=== PATIENT | male | born 1975 | race American Indian/Alaskan Native ===

== ENCOUNTER 2018-09-02 12:56 | Observation (INO) | payer BC ==
--- NOTE | 2018-09-02 13:18 | Event Note ---
ED Screening Note ED Screening Note: CO CHEST PAIN DM II HTN HPLD OBESE HX SMOKING DAD DEC 50 OF CO This initial assessment/diagnostic orders/clinical plan/treatment(s) is/are subject to change based on patients health status, clinical progression and re- assessment by fellow clinical providers in the ED. Further treatment and workup at subsequent clinical providers discretion. Patient/guardian urged not to elope from the ED as their condition may be serious if not clinically assessed and managed. Initial orders include: RO ACS
[2018-09-02] MEDS ORDERED: ASPIRIN PO ONE (13:19)
--- NOTE | 2018-09-02 14:09 | XRay Report ---
CHEST 2 VIEWS INDICATION: Acute right chest pain. COMPARISON: None FINDINGS: Support devices: None. Heart: Within normal limits. Lungs/pleura: No acute air space or interstitial disease. No pneumothorax. Additional findings: None. IMPRESSION: No acute findings. Signer Name: Joey Scherer Jr, MD Signed: 09/02/2018 2:05 PM Workstation Name: [id number]
[2018-09-02 15:09] LABS: Basophils % (Auto) 0.3 % (0.0-1.8); Eosinophils % (Auto) 0.5 % (0.0-4.3); Hematocrit 46.1 % (35.5-45.6); Hemoglobin 15.5 gm/dl (11.8-15.2); Lymphocytes # (Auto) 2.3 K/mm3 (1.2-5.4); Mean Corpuscular HGB Conc 34 % (32-34); Mean Corpuscular Volume 89 fl (84-94); Monocytes # (Auto) 0.6 K/mm3 (0.0-0.8); Monocytes % (Auto) 7.5 % (0.0-7.3); Platelet Count 191 K/mm3 (140-440); Red Blood Count 5.15 M/mm3 (3.65-5.03); Red Cell Distribution Width 14.3 % (13.2-15.2)
[2018-09-02 15:35] LABS: Alanine Aminotransferase 20 units/L (7-56); Albumin 4.6 g/dL (3.9-5); BUN/Creatinine Ratio 14; Blood Urea Nitrogen 11 mg/dL (9-20); Calcium 9.3 mg/dL (8.4-10.2); Hemolysis Index 12
[2018-09-02] MEDS ORDERED: PEPCID IV ONE (17:28)
--- NOTE | 2018-09-02 17:33 | Emergency Department Report ---
ED Chest Pain HPI - General Chief Complaint: Chest Pain Stated Complaint: CHEST PAIN Time Seen by Provider: 09/02/18 13:16 Source: patient, old records reviewed (no previous medical record for review) Mode of arrival: Ambulatory Limitations: No Limitations - History of Present Illness Initial Comments: 42-year-old male with a past medical history [id number] diabetes and hypertension presents to the hospital with complaints of chest pain since last night. Pain is in the lower mid chest and epigastric area. Described as a intermittent squeezing type of pain. Patient thought initially it was gas. At work today while walking had sudden worsening of the pain described as someone grabbing his chest radiating to the left side and left arm. The pain brought him to his knees with associated shortness of breath. He denies significant di aphoresis, nausea, vomiting, recent travel, calf tenderness, or leg edema. Patient is a former smoker. He is unsure about his father's history but he young. He has never had a stress test or cardiac workup in the past. Since he's been in the ED his significant other gave him a soda which is caused him to belch and he has some relief in his pain. He does have a PMD affiliated - Related Data Home Medications Medication Instructions Recorded Confirmed Last Taken AtorvaSTATin [Lipitor] 40 mg PO QHS 09/02/18 09/02/18 Unknown Janumet XR 100-1,000 mg 100 - 1,000 mg PO DAILY 09/02/18 09/02/18 Unknown Lisinopril [Zestril TAB] 40 mg PO DAILY 09/02/18 09/02/18 Unknown [place]-3S/Dha/Epa/Fish Oil [[place]-3 1 each PO BID 09/02/18 09/02/18 Unknown Fish Oil 1,000 mg Sfgl] amLODIPine [Norvasc] 10 mg PO DAILY 09/02/18 09/02/18 Unknown Allergies Allergy/AdvReac Type Severity Reaction Status Date / Time Penicillins Allergy Swelling Verified 09/02/18 12:58 Heart Score - HEART Score History: Moderately suspicious EKG: Non-specific Age: < 45 Risk factors: > 3 risk factors or hx of atherosclerotic disease Troponin: < normal limit HEART Score: 4 ED Review of Systems ROS: Stated complaint: CHEST PAIN Other details as noted in HPI Comment: All other systems reviewed and negative ED Past Medical Hx - Past Medical History Hx Hypertension: Yes Hx Diabetes: Yes - Surgical History Additional Surgical History: KNEE AND ANKLE SURGERY - Social History Smoking Status: Former Smoker Substance Use Type: None - Medications Home Medications: Home Medications Medication Instructions Recorded Confirmed Last Taken Type AtorvaSTATin [Lipitor] 40 mg PO QHS 09/02/18 09/02/18 Unknown History Janumet XR 100-1,000 mg 100 - 1,000 mg PO DAILY 09/02/18 09/02/18 Unknown History Lisinopril [Zestril TAB] 40 mg PO DAILY 09/02/18 09/02/18 Unknown History [place]-3S/Dha/Epa/Fish Oil [[place]-3 1 each PO BID 09/02/18 09/02/18 Unknown History Fish Oil 1,000 mg Sfgl] amLODIPine [Norvasc] 10 mg PO DAILY 09/02/18 09/02/18 Unknown History ED Physical Exam - General Limitations: No Limitations - Other Other exam information: General: No limitations, patient is alert in no acute distress Head exam: Atraumatic, normocephalic Eyes exam: Normal appearance, pupils equal reactive to light, extraocular movements intact ENT: Moist mucous membrane, normal oropharynx Neck exam: Normal inspection, full range of motion, no meningismus nontender Respiratory exam: Clear to auscultation bilateral, no wheezes, rales, crackles Cardiovascular: Normal rate and rhythm, normal heart sounds, tenderness to lower sternum and right sided chest wall Abdomen: Soft, nondistended, and mild epigastric tenderness, with normal bowel sounds, no rebound, or guarding Extremity: Full range of motion normal inspection no deformity, no calf tenderness or edema Back: Normal Inspection, full range of motion, no tenderness Neurologic: Alert, oriented x3, cranial nerves intact, no motor or sensory deficit Psychiatric: normal affect, normal mood Skin: Warm, dry, intact ED Course Vital Signs 09/02/18 09/02/18 13:16 18:30 Temperature 98.1 F 97.8 F Pulse Rate 66 57 L Respiratory 18 18 Rate Blood Pressure 147/83 143/93 O2 Sat by Pulse 98 100 Oximetry GABRIELA score - Gabriela Score Age > 65: (0) No Aspirin use within the Past 7 Days: (0) No 3 or more CAD Risk Factors: (1) Yes 2 or more Angina events in past 24 hrs: (1) Yes Known CAD with more than 50% Stenosis: (0) No Elevated Cardiac Markers: (0) No ST Deviation Greater than 0.5mm: (0) No GABRIELA Score: 2 ED Medical Decision Making - Lab Data Result diagrams: 09/02/18 14:49 09/02/18 14:49 Lab Results 09/02/18 09/02/18 Range/Units 14:49 14:49 WBC 8.4 (4.5-11.0) K/mm3 RBC 5.15 H (3.65-5.03) M/mm3 Hgb 15.5 H (11.8-15.2) gm/dl Hct 46.1 H (35.5-45.6) % MCV 89 (84-94) fl MCH 30 (28-32) pg MCHC 34 (32-34) % RDW 14.3 (13.2-15.2) % Plt Count 191 (140-440) K/mm3 Lymph % (Auto) 27.0 (13.4-35.0) % [place] % (Auto) 7.5 H (0.0-7.3) % Eos % (Auto) 0.5 (0.0-4.3) % Baso % (Auto) 0.3 (0.0-1.8) % Lymph # 2.3 (1.2-5.4) K/mm3 [place] # 0.6 (0.0-0.8) K/mm3 Eos # 0.0 (0.0-0.4) K/mm3 Baso # 0.0 (0.0-0.1) K/mm3 Seg Neutrophils % 64.7 (40.0-70.0) % Seg Neutrophils # 5.4 (1.8-7.7) K/mm3 Sodium 142 (137-145) mmol/L Potassium 4.1 (3.6-5.0) mmol/L Chloride 104.6 (98-107) mmol/L Carbon Dioxide 24 (22-30) mmol/L Anion Gap 18 mmol/L BUN 11 (9-20) mg/dL Creatinine 0.8 (0.8-1.5) mg/dL Estimated GFR > 60 ml/min BUN/Creatinine Ratio 14 % Glucose 139 H (75-100) mg/dL Calcium 9.3 (8.4-10.2) mg/dL Total Bilirubin 0.60 (0.1-1.2) mg/dL AST 17 (5-40) units/L ALT 20 (7-56) units/L Alkaline Phosphatase 74 (35-129) units/L Troponin T < 0.010 (0.00-0.029) ng/mL Total Protein 7.4 (6.3-8.2) g/dL Albumin 4.6 (3.9-5) g/dL Albumin/Globulin Ratio 1.6 % - EKG Data -: EKG Interpreted by Me EKG shows normal: sinus rhythm, axis (qrs 56), QRS complexes (qrsd 100), ST-T waves (no stemi) Rate: normal - EKG Data When compared to previous EKG there are: previous EKG unavailable - Radiology Data Radiology results: report reviewed CHEST 2 VIEWS INDICATION: Acute right chest pain. COMPARISON: None FINDINGS: Support devices: None. Heart: Within normal limits. Lungs/pleura: No acute air space or interstitial disease. No pneumothorax. Additional findings: None. IMPRESSION: No acute findings. - Medical Decision Making Patient has several risk factors and a heart score of 4 and will be admitted for further cardiac testing. He received aspirin and Pepcid in the ED. Ho spitalist informed for admission. low score for dvt/pe (wellen's score) - Differential Diagnosis GA, unstable angina, costochondritis, GERD, PE Critical Care Time: No Critical care attestation.: If time is entered above; I have spent that time in minutes in the direct care of this critically ill patient, excluding procedure time. ED Disposition Clinical Impression: Chest pain, Obesity (BMI 30.0-34.9), Non-insulin dependent type 2 diabetes mellitus, Chronic hypertension, Former smoker Disposition: OP ADMIT IP TO THIS HOSP Is pt being admited?: Yes Does the pt Need Aspirin: Yes Condition: Stable Time of Disposition: 17:34 (Dr Brice/hosp)
[2018-09-02] MEDS ORDERED: ASPIRIN ONE (18:40)
[2018-09-02 18:56] LABS: Bilirubin,Urine NEG (Negative); Blood,Urine SM (Negative); Color,Urine Straw (Yellow); Mucus,Urine FEW /HPF; Protein,Urine <15 mg/dL mg/dL (Negative); Urobilinogen,Urine < 2.0 mg/dL (<2.0); WBC,Urine < 1.0 /HPF (0.0-6.0)
--- NOTE | 2018-09-02 22:58 | Event Note ---
Date: 09/02/18 See dictated history and physical in the reports Chest pain rule out NM Hypertension Type 2 diabetes
[2018-09-02] MEDS ORDERED: DILAUDID IV PRN (23:00)
[2018-09-02] MEDS ORDERED: TYLENOL PO PRN (23:00)
[2018-09-02] MEDS ORDERED: SODIUM CHLORIDE FLUSH SYRINGE 10 ML IV PRN (23:00)
[2018-09-02] MEDS ORDERED: IBUPROFEN PO PRN (23:00)
[2018-09-02] MEDS ORDERED: ZOFRAN IV PRN (23:00)
--- NOTE | 2018-09-02 23:24 | History and Physical Report ---
CHIEF COMPLAINT: Left-sided chest pain since last night. HISTORY OF PRESENT ILLNESS: A 42-year-old -Serbian male with past medical history of hypertension and non-insulin dependent diabetes, comes in for left-sided chest pain since last night. Pain is in the retrosternal and epigastric area. Intermittent and squeezing type of pain. Pain is about 8 on a scale of 1-10. No diaphoresis, no palpitations, radiating to the left. Also shortness of breath present. No recent travel. Strong family history of coronary artery disease. Never had a stress test in the past. No exacerbating or relieving factors. PAST MEDICAL HISTORY: Significant for hypertension and diabetes. PAST SURGICAL HISTORY: Knee and ankle surgery. SOCIAL HISTORY: Former smoker. FAMILY HISTORY: Hypertension and coronary artery disease. CURRENT MEDICATIONS: Atorvastatin 40 mg daily, amlodipine 10 mg daily, Janumet 100/1000 once a day, lisinopril 40 mg once a day. REVIEW OF SYSTEMS: Significant for left-sided chest pain and shortness of breath. Otherwise, review of systems negative. A 14-point review of systems done. PHYSICAL EXAMINATION: GENERAL: Middle-aged male, cooperative during examination. VITAL SIGNS: Blood pressure 147/83, temperature is 98.1, pulse is 66, respirations are 18. HEENT: Unremarkable. Pupils are equal and reactive. NECK: Supple, no lymphadenopathy, no thyromegaly. LUNGS: Clear to auscultation and percussion. Good air entry. CARDIOVASCULAR: S1, S2 heard. No gallop, no murmur, no rub. Apical impulse in left fifth intercostal space and midclavicular line. ABDOMEN: Soft and benign. No hepatosplenomegaly. No guarding, no rigidity. Hernial orifices are normal. EXTREMITIES: Good pedal pulses. No pedal edema. CENTRAL NERVOUS SYSTEM: Alert and oriented x 4, nonfocal exam. SKIN: Normal. LABORATORY DATA: White count is 8400, H and H is 15.5 and 46.1, platelet count is 191,000. Electrolytes are normal. Glucose is 139. Urine is normal. EKG shows normal sinus rhythm, LVH criteria for V1, V2, V3 and deep S waves and tall R waves in V4, V5, V6. Chest x-ray, no acute abnormalities. ASSESSMENT AND PLAN: 1. Chest pain, rule out myocardial infarction, chest pain protocol. Serial troponins. Lexiscan in the morning. 2. Hypertension. Continue amlodipine and lisinopril. 3. Hyperlipidemia. Continue atorvastatin. 4. Type 2 diabetes. Continue Janumet XR 100/1000 daily and also check hemoglobin A1c and Accu-Cheks a.c. and at bedtime with Humalog coverage with moderate dose sliding scale protocol. 5. Deep venous thrombosis prophylaxis, Lovenox 40 mg subcutaneous daily. JOB# [id number] VSM/NTS
[2018-09-02] MEDS: FISH OIL PO SCH (23:28)
[2018-09-03 07:20] LABS: Basophils % (Auto) 0.1 % (0.0-1.8); Eosinophils # (Auto) 0.1 K/mm3 (0.0-0.4); Eosinophils % (Auto) 0.7 % (0.0-4.3); Hemoglobin 14.8 gm/dl (11.8-15.2); Lymphocytes # (Auto) 2.2 K/mm3 (1.2-5.4); Lymphocytes % (Auto) 28.4 % (13.4-35.0); Mean Corpuscular HGB Conc 35 % (32-34); Mean Corpuscular Volume 88 fl (84-94); Monocytes # (Auto) 0.7 K/mm3 (0.0-0.8); Monocytes % (Auto) 9.5 % (0.0-7.3); Platelet Count 189 K/mm3 (140-440); Red Blood Count 4.87 M/mm3 (3.65-5.03); Red Cell Distribution Width 13.5 % (13.2-15.2)
[2018-09-03 07:24] LABS: Alanine Aminotransferase 18 units/L (7-56); Albumin 4.1 g/dL (3.9-5); BUN/Creatinine Ratio 13; Blood Urea Nitrogen 10 mg/dL (9-20); Calcium 8.9 mg/dL (8.4-10.2); Hemolysis Index 14
[2018-09-03] MEDS ORDERED: LEXISCAN IV ONE (07:45)
[2018-09-03] MEDS ORDERED: NORVASC PO SCH (10:00)
[2018-09-03] MEDS ORDERED: ZESTRIL PO SCH (10:00)
[2018-09-03] MEDS ORDERED: TRADJENTA PO SCH (10:00)
[2018-09-03] MEDS: HumaLOG SUB-Q SCH ×4 (13:22→22:48)
[2018-09-03] MEDS: GLUCOPHAGE PO SCH ×2 (14:10→18:17)
[2018-09-03] MEDS: PEPCID PO SCH ×2 (14:10→21:30)
[2018-09-03] MEDS: SODIUM CHLORIDE FLUSH SYRINGE 10 ML IV SCH ×2 (14:12→21:29)
[2018-09-03] MEDS: FISH OIL PO SCH (14:15)
--- NOTE | 2018-09-03 15:01 | Progress Note ---
Assessment and Plan Assessment and plan: Chest pain Stress test abnormal cardiology consulted, evaluated him For cardiac cath tomorrow Hypertension Monitor BP Diabetes mellitus type 2 Accucheck qac and hs Obesity. I counseled him and discussed diet and exercise to lose weight full code status History Interval history: Chest pain Hospitalist Physical - Physical exam Narrative exam: Gen: Not in acute distress, lying in bed,Obese HEENT: Normocephalic, atraumatic Neck: supple, no JVD Heart: S1 and S2 reg, no murmurs, rubs or gallop Lungs: Clear, no crackles or wheeze Abd: soft, non tender, non distended, normal BS Ext: No edema, no clubbing, no cyanosis Neuro:awake,alert, Oriented X 3. No focal signs Psych: Normal mood - Constitutional Vitals: Temp Pulse Resp BP Pulse Ox 98.1 F 56 L 18 137/86 100 09/03/18 07:37 09/03/18 06:00 09/03/18 07:37 09/03/18 09:12 09/03/18 04:00 Results - Labs CBC & Chem 7: 09/03/18 05:54 09/03/18 05:54 Labs: Laboratory Last Values WBC 7.7 K/mm3 (4.5-11.0) 09/03/18 05:54 RBC 4.87 M/mm3 (3.65-5.03) 09/03/18 05:54 Hgb 14.8 gm/dl (11.8-15.2) 09/03/18 05:54 Hct 43.0 % (35.5-45.6) 09/03/18 05:54 MCV 88 fl (84-94) 09/03/18 05:54 MCH 31 pg (28-32) 09/03/18 05:54 MCHC 35 % (32-34) H 09/03/18 05:54 RDW 13.5 % (13.2-15.2) 09/03/18 05:54 Plt Count 189 K/mm3 (140-440) 09/03/18 05:54 Lymph % (Auto) 28.4 % (13.4-35.0) 09/03/18 05:54 [place] % (Auto) 9.5 % (0.0-7.3) H 09/03/18 05:54 Eos % (Auto) 0.7 % (0.0-4.3) 09/03/18 05:54 Baso % (Auto) 0.1 % (0.0-1.8) 09/03/18 05:54 Lymph # 2.2 K/mm3 (1.2-5.4) 09/03/18 05:54 [place] # 0.7 K/mm3 (0.0-0.8) 09/03/18 05:54 Eos # 0.1 K/mm3 (0.0-0.4) 09/03/18 05:54 Baso # 0.0 K/mm3 (0.0-0.1) 09/03/18 05:54 Seg Neutrophils % 61.3 % (40.0-70.0) 09/03/18 05:54 Seg Neutrophils # 4.7 K/mm3 (1.8-7.7) 09/03/18 05:54 Sodium 142 mmol/L (137-145) 09/03/18 05:54 Potassium 3.9 mmol/L (3.6-5.0) 09/03/18 05:54 Chloride 105.6 mmol/L (98-107) 09/03/18 05:54 Carbon Dioxide 23 mmol/L (22-30) 09/03/18 05:54 17 mmol/L 09/03/18 05:54 BUN 10 mg/dL (9-20) 09/03/18 05:54 0.8 mg/dL (0.8-1.5) 09/03/18 05:54 Estimated GFR > 60 ml/min 09/03/18 05:54 13 % 09/03/18 05:54 Glucose 132 mg/dL (75-100) H 09/03/18 05:54 POC Glucose 152 (70-105) H 09/03/18 11:42 7.2 % (4-6) H 09/02/18 14:49 Calcium 8.9 mg/dL (8.4-10.2) 09/03/18 05:54 0.50 mg/dL (0.1-1.2) 09/03/18 05:54 AST 15 units/L (5-40) 09/03/18 05:54 ALT 18 units/L (7-56) 09/03/18 05:54 72 units/L (35-129) 09/03/18 05:54 < 0.010 ng/mL (0.00-0.029) 09/03/18 05:54 6.1 g/dL (6.3-8.2) L 09/03/18 05:54 4.1 g/dL (3.9-5) 09/03/18 05:54 2.1 % 09/03/18 05:54 Straw (Yellow) 09/02/18 18:35 Clear (Clear) 09/02/18 18:35 7.0 (5.0-7.0) 09/02/18 18:35 Ur Specific [place] 1.012 (1.003-1.030) 09/02/18 18:35 <15 mg/dl mg/dL (Negative) 09/02/18 18:35 Neg mg/dL (Negative) 09/02/18 18:35 Neg mg/dL (Negative) 09/02/18 18:35 Sm (Negative) 09/02/18 18:35 Neg (Negative) 09/02/18 18:35 Neg (Negative) 09/02/18 18:35 < 2.0 mg/dL (<2.0) 09/02/18 18:35 Ur Leukocyte Esterase Neg (Negative) 09/02/18 18:35 < 1.0 /HPF (0.0-6.0) 09/02/18 18:35 1.0 /HPF (0.0-6.0) 09/02/18 18:35 U Epithel Cells (Auto) < 1.0 /HPF (0-13.0) 09/02/18 18:35 Few /HPF 09/02/18 18:35 Active Medications - Current Medications Current Medications: Generic Name Dose Route Start Last Admin Trade Name Freq PRN Reason Stop Dose Admin Acetaminophen 650 mg 09/02/18 23:00 Tylenol PO Q4H PRN Pain MILD(1-3)/Fever >100.5/REARDON Amlodipine Besylate 10 mg 09/03/18 10:00 09/03/18 14:10 Norvasc PO 10 mg DAILY KJ Administration Atorvastatin Calcium 40 mg 09/03/18 22:00 Lipitor PO QHS KJ Enoxaparin Sodium 40 mg 09/03/18 22:00 Lovenox SUB-Q QDAY@2200 KJ Famotidine 20 mg 09/03/18 10:00 09/03/18 14:10 Pepcid PO 20 mg BID KJ Administration Fish Oil 1,000 mg 09/03/18 22:00 Fish Oil PO BID [facility] Hydromorphone HCl 0.5 mg 09/02/18 23:00 Dilaudid IV Q3H PRN Pain , Severe (7-10) Ibuprofen 600 mg 09/02/18 23:00 Ibuprofen PO Q6H PRN Pain, Mild (1-3) Insulin Human Lispro 0 unit 09/03/18 07:30 09/03/18 13:23 Humalog SUB-Q Not Given ACHS [facility] Protocol Linagliptin 5 mg 09/03/18 10:00 09/03/18 14:11 Tradjenta PO 5 mg QDAY KJ Administration Lisinopril 40 mg 09/03/18 10:00 09/03/18 14:12 Zestril PO 40 mg DAILY KJ Administration Metformin HCl 500 mg 09/03/18 08:00 09/03/18 14:10 Glucophage PO 500 mg BIDDIAB KJ Administration Ondansetron HCl 4 mg 09/02/18 23:00 Zofran IV Q8H PRN Nausea And Vomiting Sodium Chloride 10 ml 09/03/18 10:00 09/03/18 14:12 Sodium Chloride Flush Syringe 10 Ml IV 10 ml BID KJ Administration Sodium Chloride 10 ml 09/02/18 23:00 Sodium Chloride Flush Syringe 10 Ml IV PRN PRN LINE FLUSH
--- NOTE | 2018-09-03 15:07 | Consultation ---
History of Present Illness Consult date: 09/03/18 Requesting physician: FRANCIE KAUR Consult reason: chest pain History of present illness: The pt is a 42-year-old male with a past medical history of HTN (controlled with lisinopril), HLP, DM, sleep apnea, former tobacco use (quit smoking 1 year ago). He is previously unknown to our practice. He presented with c/o chest pain. He states that he was at work yesterday evening when he developed sudden onset nonradiating, nonexertional, midsternal squeezing pain. The pain was so intense that it brought him to his knees. The pain has been intermittently present since that point. There are no clear aggravating or alleviating factors. Pt also reports some indigestion for the past 2 days. He denies any SOB, palpitations, n/v, diaphoresis, dizziness or syncope. Pt denies any known prior cardiac issues or cardiac w/u. Pt underwent lexiscan MPI stress test this morning which showed medium reversible inferior defect and thus cardiology has been consulted. Past History Past Medical History: diabetes, hypertension, hyperlipidemia Past Surgical History: Other (right ankle surgery) Social history: smoking (former) Medications and Allergies Allergies Allergy/AdvReac Type Severity Reaction Status Date / Time Penicillins Allergy Swelling Verified 09/02/18 12:58 Home Medications Medication Instructions Recorded Confirmed Last Taken Type AtorvaSTATin [Lipitor] 40 mg PO QHS 09/02/18 09/02/18 Unknown History Janumet XR 100-1,000 mg 100 - 1,000 mg PO DAILY 09/02/18 09/02/18 Unknown History Lisinopril [Zestril TAB] 40 mg PO DAILY 09/02/18 09/02/18 Unknown History [place]-3S/Dha/Epa/Fish Oil [[place]-3 1 each PO BID 09/02/18 09/02/18 Unknown History Fish Oil 1,000 mg Sfgl] amLODIPine [Norvasc] 10 mg PO DAILY 09/02/18 09/02/18 Unknown History Active Meds: Active Medications Acetaminophen (Tylenol) 650 mg PO Q4H PRN PRN Reason: Pain MILD(1-3)/Fever >100.5/REARDON Amlodipine Besylate (Norvasc) 10 mg PO DAILY KJ Last Admin: 09/03/18 14:10 Dose: 10 mg Documented by: Atorvastatin Calcium (Lipitor) 40 mg PO QHS [facility]END[facility] TO [facility] Enoxaparin Sodium (Lovenox) 40 mg SUB-Q QDAY@2200 [facility] Famotidine (Pepcid) 20 mg PO BID [facility] Last Admin: 09/03/18 14:10 Dose: 20 mg Documented by: Fish Oil (Fish Oil) 1,000 mg PO BID [facility] Hydromorphone HCl (Dilaudid) 0.5 mg IV Q3H PRN PRN Reason: Pain , Severe (7-10) Ibuprofen (Ibuprofen) 600 mg PO Q6H PRN PRN Reason: Pain, Mild (1-3) Insulin Human Lispro (Humalog) 0 unit SUB-Q ACHS [facility]END[facility]; Protocol Last Admin: 09/03/18 13:23 Dose: Not Given Documented by: Linagliptin (Tradjenta) 5 mg PO QDAY [facility] Last Admin: 09/03/18 14:11 Dose: 5 mg Documented by: Lisinopril (Zestril) 40 mg PO DAILY [facility] Last Admin: 09/03/18 14:12 Dose: 40 mg Documented by: Metformin HCl (Glucophage) 500 mg PO BIDDIAB [facility] Last Admin: 09/03/18 14:10 Dose: 500 mg Documented by: Ondansetron HCl (Zofran) 4 mg IV Q8H PRN PRN Reason: Nausea And Vomiting Sodium Chloride (Sodium Chloride Flush Syringe 10 Ml) 10 ml IV BID [facility] Last Admin: 09/03/18 14:12 Dose: 10 ml Documented by: Sodium Chloride (Sodium Chloride Flush Syringe 10 Ml) 10 ml IV PRN PRN PRN Reason: LINE FLUSH Review of Systems Constitutional: no weight loss, no weight gain, no fever, no chills, no sweats Ears, nose, mouth and throat: no ear pain, no nose pain, no sinus pressure, no sinus pain Cardiovascular: chest pain, no orthopnea, no palpitations, no rapid/irregular heart beat, no edema, no syncope, no lightheadedness, no shortness of breath, no dyspnea on exertion Respiratory: no cough, no shortness of breath, no dyspnea on exertion, no congestion, no wheezing, no pain on inspiration Gastrointestinal: no abdominal pain, no nausea, no vomiting, no diarrhea, no constipation, no change in bowel habits Genitourinary Male: no dysuria, no hematuria, no flank pain, no discharge, no urinary frequency, no urinary hesitancy Musculoskeletal: no neck stiffness, no neck pain, no shooting arm pain, no arm n umbness/tingling, no low back pain, no shooting leg pain Integumentary: no rash, no pruritis, no redness, no sores, no wounds Neurological: no head injury, no paralysis, no weakness, no parathesias, no numbness, no tingling, no seizures, no syncope Psychiatric: no anxiety Endocrine: no cold intolerance, no heat intolerance Hematologic/Lymphatic: no easy bruising, no easy bleeding Allergic/Immunologic: no urticaria, no wheezing Physical Examination Vital Signs Temp Pulse Resp BP Pulse Ox 98.1 F 66 18 147/83 98 09/02/18 13:16 09/02/18 13:16 09/02/18 13:16 09/02/18 13:16 09/02/18 13:16 General appearance: no acute distress HEENT: Positive: PERRL, Normocephaly, Mucus Membranes Moist Neck: Positive: neck supple, trachea midline Cardiac: Positive: Reg Rate and Rhythm, S1/S2 Lungs: Positive: Decreased Breath Sounds Neuro: Positive: Grossly Intact Abdomen: Negative: Tender Skin: Negative: Rash Musculoskeletal: No Pain Extremities: Absent: edema Results 09/03/18 05:54 09/03/18 05:54 Cardiac Enzymes 09/02/18 09/03/18 Range/Units 14:49 05:54 AST 17 15 (5-40) units/L CBC 09/02/18 09/03/18 Range/Units 14:49 05:54 WBC 8.4 7.7 (4.5-11.0) K/mm3 RBC 5.15 H 4.87 (3.65-5.03) M/mm3 Hgb 15.5 H 14.8 (11.8-15.2) gm/dl Hct 46.1 H 43.0 (35.5-45.6) % Plt Count 191 189 (140-440) K/mm3 Lymph # 2.3 2.2 (1.2-5.4) K/mm3 [place] # 0.6 0.7 (0.0-0.8) K/mm3 Eos # 0.0 0.1 (0.0-0.4) K/mm3 Baso # 0.0 0.0 (0.0-0.1) K/mm3 Comprehensive Metabolic Panel 09/02/18 09/03/18 Range/Units 14:49 05:54 Sodium 142 142 (137-145) mmol/L Potassium 4.1 3.9 (3.6-5.0) mmol/L Chloride 104.6 105.6 (98-107) mmol/L Carbon Dioxide 24 23 (22-30) mmol/L BUN 11 10 (9-20) mg/dL Creatinine 0.8 0.8 (0.8-1.5) mg/dL Glucose 139 H 132 H (75-100) mg/dL Calcium 9.3 8.9 (8.4-10.2) mg/dL AST 17 15 (5-40) units/L ALT 20 18 (7-56) units/L Alkaline Phosphatase 74 72 (35-129) units/L Total Protein 7.4 6.1 L (6.3-8.2) g/dL Albumin 4.6 4.1 (3.9-5) g/dL - Imaging and Cardiology Echo: pending EKG: report reviewed, image reviewed EKG interpretations - Telemetry EKG Rhythm: Sinus Rhythm - EKG Sinus rhythms and dysrhythmias: sinus rhythm Chamber hypertrophy or enlargement: left ventricular hypertro Assessment and Plan Pt presented with c/o chest pain. He underwent lexiscan MPI stress test this morning which showed medium reversible inferior defect and thus cardiology has been consulted. Coronary angiography recommended for definitive diagnosis. Indications, potential risks and benefits of LHC reviewed with pt and he is agreeable to proceed with LHC in AM. PT REFUSES BLOOD PRODUCTS. NPO after MN. Await echo. The patient has been seen in conjunction with Dr. Dias who agrees with the assessment and plan of care. - Patient Problems (1) Abnormal stress test Current Visit: Yes Status: Acute (2) Chest pain Current Visit: Yes Status: Acute (3) HTN (hypertension) Current Visit: Yes Status: Chronic (4) Hyperlipidemia Current Visit: Yes Status: Chronic (5) Diabetes Current Visit: Yes Status: Chronic (6) Sleep apnea Current Visit: Yes Status: Chronic (7) Former smoker Current Visit: Yes Status: Chronic
[2018-09-03] MEDS ORDERED: NACL 0.9% 500 ML 500 ML IV SCH (16:00)
[2018-09-03] MEDS ORDERED: LOVENOX SUB-Q SCH (22:00)
[2018-09-03] MEDS ORDERED: LOPRESSOR PO SCH (22:00)
[2018-09-03] MEDS ORDERED: FISH OIL PO SCH (22:00)
--- NOTE | 2018-09-03 22:06 | Treadmill Report ---
LEXISCAN STRESS TEST REPORT REASON FOR STUDY: Chest pain. STRESS TEST PROTOCOL: The patient received 0.4 mg of Lexiscan intravenously over 10 seconds. Tc-99m Tetrofosmin was subsequently injected. Baseline ECG, sinus bradycardia. Lexiscan ECG, no ischemic changes. No chest pain. No arrhythmias. IMPRESSION: Electrocardiographically negative stress test. Nuclear imaging report to follow. JOB# [id number] ROLAN/NTS
[2018-09-04 06:02] LABS: Basophils % (Auto) 0.2 % (0.0-1.8); Eosinophils # (Auto) 0.1 K/mm3 (0.0-0.4); Eosinophils % (Auto) 0.7 % (0.0-4.3); Hemoglobin 15.3 gm/dl (11.8-15.2); Lymphocytes % (Auto) 26.6 % (13.4-35.0); Mean Corpuscular HGB Conc 34 % (32-34); Mean Corpuscular Volume 89 fl (84-94); Monocytes # (Auto) 0.7 K/mm3 (0.0-0.8); Monocytes % (Auto) 9.8 % (0.0-7.3); Platelet Count 195 K/mm3 (140-440); Red Blood Count 5.08 M/mm3 (3.65-5.03); Red Cell Distribution Width 13.7 % (13.2-15.2)
[2018-09-04 06:11] LABS: INR 0.9 (0.87-1.13)
[2018-09-04 06:21] LABS: BUN/Creatinine Ratio 11; Blood Urea Nitrogen 9 mg/dL (9-20); Calcium 8.5 mg/dL (8.4-10.2); Hemolysis Index 6
[2018-09-04] MEDS: HumaLOG SUB-Q SCH ×2 (08:00→14:51)
[2018-09-04] MEDS ORDERED: ASPIRIN ONE (08:08)
[2018-09-04] MEDS ORDERED: NACL 0.9% 500 ML 500 ML ONE (08:23)
[2018-09-04] MEDS ORDERED: HEPARIN/NS 5000 UNIT/500ML(CATH LAB) 1,000 ML IR ONE (08:37)
[2018-09-04] MEDS ORDERED: NITROGLYCERIN SYRINGE 3 ML ONE (08:38)
[2018-09-04] MEDS ORDERED: HEPARIN 10,000 UNITS/10 ML ONE (08:38)
[2018-09-04] MEDS ORDERED: CALAN ONE (08:38)
[2018-09-04] MEDS ORDERED: NACL 0.9% 500 ML 500 ML IV SCH (09:00)
[2018-09-04] MEDS ORDERED: SUBLIMAZE ONE (09:17)
[2018-09-04] MEDS ORDERED: VERSED ONE (09:17)
[2018-09-04] MEDS: XYLOCAINE 2% INFILTRATI ONE ×2 (09:27→09:53)
[2018-09-04] MEDS ORDERED: ASPIRIN PO SCH (10:00)
--- NOTE | 2018-09-04 10:12 | Progress Note ---
Assessment and Plan cp with positive stress test chol htn dm rec: cardiac cath normal coronaries and normal lv function, treat for non cardiac chest pain and follow up with pcp dr jorge kelly and hold metoformin for two days and may be discharged after post cath care. Subjective Date of service: 09/04/18 Principal diagnosis: chest pain Interval history: currently chest pain free Objective Vital Signs Temp Pulse Resp BP BP Pulse Ox 09/04/18 08:12 99.3 F 57 L 9 L 137/84 97 09/04/18 07:11 98.0 F 60 18 136/90 85 09/04/18 03:52 98.0 F 54 L 18 112/69 97 09/04/18 03:50 58 L 09/04/18 01:28 56 L 14 98 09/03/18 23:02 98.0 F 62 18 127/83 98 09/03/18 21:30 161/97 09/03/18 20:41 61 09/03/18 19:28 98.0 F 63 20 161/97 99 09/03/18 18:12 50 L 167/93 80 L 09/03/18 16:44 97.4 F L 18 152/103 87 09/03/18 11:37 98.5 F 65 18 151/93 - Physical Examination General: Appears Well HEENT: Positive: PERRL, Normocephaly, Mucus Membranes Moist Neck: Positive: neck supple, trachea midline Cardiac: Positive: Reg Rate and Rhythm Lungs: Positive: clear to auscultation Neuro: Positive: Grossly Intact Abdomen: Negative: Tender Skin: Negative: Rash Musculoskeletal: No Pain Extremities: Absent: edema - Labs and Meds Coagulation 09/04/18 Range/Units 05:35 PT 11.9 L (12.2-14.9) Sec. INR 0.90 (0.87-1.13) CBC 09/04/18 Range/Units 05:35 WBC 7.5 (4.5-11.0) K/mm3 RBC 5.08 H (3.65-5.03) M/mm3 Hgb 15.3 H (11.8-15.2) gm/dl Hct 45.0 (35.5-45.6) % Plt Count 195 (140-440) K/mm3 Lymph # 2.0 (1.2-5.4) K/mm3 Atkinson # 0.7 (0.0-0.8) K/mm3 Eos # 0.1 (0.0-0.4) K/mm3 Baso # 0.0 (0.0-0.1) K/mm3 Comprehensive Metabolic Panel 09/04/18 Range/Units 05:35 Sodium 141 (137-145) mmol/L Potassium 3.6 (3.6-5.0) mmol/L Chloride 104.8 (98-107) mmol/L Carbon Dioxide 26 (22-30) mmol/L BUN 9 (9-20) mg/dL Creatinine 0.8 (0.8-1.5) mg/dL Glucose 116 H (75-100) mg/dL Calcium 8.5 (8.4-10.2) mg/dL - Imaging and Cardiology EKG: report reviewed, image reviewed Cardiac cath: report reviewed (normal coroanries and normal lv function ) - Telemetry EKG Rhythm: Sinus Rhythm - EKG Sinus rhythms and dysrhythmias: sinus rhythm Chamber hypertrophy or enlargement: left ventricular hypertro
--- NOTE | 2018-09-04 10:59 | Cardiac Catherization Report ---
LEFT HEART CATHETERIZATION CLINICAL INFORMATION: This is a 42-year-old -[place] gentleman who has hypertension, diabetes, cholesterol, presents with chest pain, is here for abnormal stress test suggestive of ischemia, is here for left heart catheterization for suspected coronary artery disease given risk factors of chest pain. DESCRIPTION OF PROCEDURE: Procedure was done with moderate sedation, 1 mg Versed, 50 mcg of fentanyl; started at 9:26 a.m., finished at 9:57 a.m.; 31 minutes of supervised sedation noted. Procedure was initially done via the right radial artery, 6-[place] radial sheath, unable to engage the left system, so it was changed over to a femoral 5-[place] groin sheath placed in the right common femoral artery, sterile technique, local anesthesia, 5-[place] groin sheath placed. So, RCA was engaged with JR4 from the right radial. It is a large dominant vessel, is patent with moderate tortuosity. LV gram done in the CONSUELO and WORLEY view shows normal LV function, EF 55-60%. LVEDP is 17 mmHg, LV is 124. Aortic is 127/78. No gradient across the aortic valve on pullback. Unable to get into the left system from the right radial approach secondary to tortuosity of the innominate and high takeoff, used multiple catheters without success, so we changed to a femoral approach. So, left system engaged with JL4 catheter from the groin, showed left main large, patent and long, bifurcates into a large LAD that is patent. Diagonal 1 is medium caliber, is patent. Ramus is a large caliber vessel, is patent. Circumflex is a large caliber vessel, is patent, goes into a large OM1 that is patent. So, 5-[place] catheters were taken over the guidewire, 5-[place] groin sheath was discontinued. Manual pressure held. Right radial sheath was discontinued. Radial band applied. No hematoma, no bleeding. SUMMARY: Normal coronaries, left main patent, LAD patent, ramus patent, circ patent, RCA patent, normal LV function. Continue risk factor modification for hypertension, diabetes, cholesterol, noncardiac chest pain. [facility]# [id number] ERROL/BRODIE
--- NOTE | 2018-09-04 12:10 | Discharge Summary ---
Providers - Providers Date of Admission: 09/02/18 17:35 Date of discharge: 09/04/18 Attending physician: FRANCIE KAUR 09/03/18 15:00 Consult to Physician [CONS] Routine Comment: Consulting Provider: COOPER MARTIN Physician Instructions: Reason For Exam: Abnormal stress test 09/04/18 10:09 Consult to Cardiac Rehabilitation [CONS] Routine Reason For Exam: Cardiac Rehab Evaluation Primary care physician: AMMY SIN Hospitalization Condition: Fair Hospital course: Patient is 42 yo with hypertension diabetes presented with chest pain. He was seen and evaluated in ED. Troponin was normal. Patient was admitted to rule out acute coronary syndrome. Following day stress test was done and was abnormal, thereforwe cardiac catheterization was done. Cardiac cath showed normal coronary arteries. Chest pain determined to be non-cardiac, due to GERD. He was subsequently discharged home to follow as an outpatient. He was advised not to take metformin for 2 days post cardiac cath. Total time spent in discharge, 33 minutes Disposition: DC- TO HOME OR SELFCARE - Discharge Diagnoses (1) Chest pain Status: Acute (2) Obesity (BMI 30.0-34.9) Status: Acute (3) Diabetes Status: Chronic (4) HTN (hypertension) Status: Chronic (5) Hyperlipidemia Status: Chronic (6) GERD (gastroesophageal reflux disease) Status: Acute (7) Abnormal stress test Status: Acute Core Measure Documentation - Palliative Care Palliative Care/ Comfort Measures: Not Applicable - Core Measures Any of the following diagnoses?: none Exam - Constitutional Vitals: Temp Pulse Resp BP Pulse Ox 97.7 F 60 14 130/84 97 09/04/18 10:32 09/04/18 11:30 09/04/18 11:30 09/04/18 11:30 09/04/18 11:30 Plan Activity: advance as tolerated Diet: low fat, low cholesterol, low salt, diabetic Additional Instructions: 1.Follow up with Dr. Sin, PCP in 1 week. 2.Start taking Janumet back on Saturday09/07/18 Follow up with: AMMY SIN MD [Primary Care Provider] - 3-5 Days Forms: Work/School Release Form Prescriptions: Famotidine [Pepcid] 20 mg PO BID #30 tablet
--- NOTE | 2018-09-04 12:51 | Treadmill Report ---
THALLIUM REPORT REASON FOR STUDY: Chest pain. IMAGING PROTOCOL: The patient received 10 mCi of technetium-99m Tetrofosmin for rest imaging and 28 mCi of technetium-99m Tetrofosmin for stress imaging for all procedures, etc. The patient received 4 mCi of Thallium 201 for rest imaging and 26 mCi of technetium-99 Tetrofosmin for stress imaging. Imaging for all procedures was completed 30-90 minutes following the initial injection of Technetium 99m Tetrofosmin. SPECT imaging in the 180 degree arc was performed in the right anterior oblique projection. Computerized reconstruction of the images was performed for analysis. NUCLEAR IMAGING RESULTS: Technically limited study due to soft tissue attenuation artifact. Normal left ventricular cavity size with no change from stress to rest. Distribution of radionuclide within the left ventricle revealed a medium-sized area of photo-induction involving the inferior and inferoapical region. The degree of photo-induction is moderate. Rest imaging showed complete improvement in this defect. Gated SPECT imaging revealed normal global LV systolic function with no significant wall motion abnormalities. The calculated left ventricular ejection fraction is 52%. IMPRESSION: Technically limited study. Medium size reversible inferior and inferoapical defect. Normal global left ventricular systolic function with no significant wall motion abnormalities. Calculated left ventricular ejection fraction 52%. These findings suggest moderate reversible ischemia in the right coronary artery territory. No evidence of prior infarction. [facility]# [id number] ROLAN/NTS
[2018-09-04] MEDS: GLUCOPHAGE PO SCH (14:54)
[2018-09-04 20:14] VITALS: BP 131/68
== END 2018-09-04 18:00 | disposition home or self-care (01) ==
LOC: ED 12:56 → 4A 17:35 → INTOOBSV 17:35
PROVIDERS: ADMIT Internal Medicine; ATTEND Internal Medicine
DX: R07.89 Other chest pain (principal); I10 Essential (primary) hypertension; E66.9 Obesity, unspecified; E11.9 Type 2 diabetes mellitus without complications; E78.5 Hyperlipidemia, unspecified; R94.39 Abnormal result of other cardiovascular function study; G47.30 Sleep apnea, unspecified; Z98.890 Other specified postprocedural states; Z79.899 Other long term (current) drug therapy; Z87.891 Personal history of nicotine dependence
CPT/HCPCS: 36415; 71046; 78452; 80048; 80053; 81001; 82962; 83036; 84484; 85025; 85610; 93005; 93010; 93017; 93306; 93458; 94660; 96372; 96374; 96375; 99284; A9270; A9502; C1887; C1894; G0378; J1170; J1644; J1650; J2250; J2785; J3010; J7040; Q9967